=== PATIENT | female | born 2000 ===

== ENCOUNTER 2024-02-28 04:42 | Emergency (ER) | payer SELFPAY ==
[2024-02-28 05:00] VITALS: BP 122/61; PULSE 86; RESP 20; TEMP 35.6; O2SAT 100
--- NOTE | 2024-02-28 10:11 | PC.NURSE ---
No answer when called to room.
== END 2024-02-28 10:11 | disposition left against medical advice (07) ==
DX: R11.2 Nausea with vomiting, unspecified (principal)
CPT/HCPCS: 99199